=== PATIENT | male | born 1970 | race Two or more races ===

== ENCOUNTER 2024-07-17 14:16 | Emergency (ER) | payer OTHER ==
[2024-07-17 14:30] VITALS: BP 120/78; PULSE 78; RESP 20; TEMP 98.9; BMI 29.2
[2024-07-17] MEDS ORDERED: ACETAMINOPHEN 500 MG TABLET (FP) ONE (15:11)
[2024-07-17] MEDS: ACETAMINOPHEN 500 MG TABLET (FP) PO ONE (15:15)
[2024-07-17] MEDS ORDERED: KETOROLAC TROMETHAMINE 30 MG/1 ML VIAL ONE (16:52)
[2024-07-17] MEDS: KETOROLAC TROMETHAMINE 30 MG/1 ML VIAL IM ONE (16:55)
== END 2024-07-17 17:10 | disposition home or self-care (01) ==
LOC: JER 14:16
PROC: 3E0233Z Introduction of Anti-inflammatory into Muscle, Percutaneous Approach (ICD-10-PCS; principal; 2024-07-17)
DX: S00.03XA Contusion of scalp, initial encounter (principal); M25.552 Pain in left hip; M54.9 Dorsalgia, unspecified; W17.89XA Other fall from one level to another, initial encounter
CPT/HCPCS: 70450-TC; 73502-TC-LT-FY; 99284-25